=== PATIENT | male | born 1950 | race Caucasian/White ===

== ENCOUNTER 2016-07-15 23:58 | Inpatient (IN) | payer MEDICARE, OTHER ==
--- OUTSIDE RECORDS SUMMARY | 2016-07-16 00:10 | XMS REPORT | Continuity of Care Document ---
:1950 Author Organization [facility] ([facility]) Address [address] [place] [address] Phone [phone] Care Team Providers Name Role Phone Haley Han Primary Care Provider [phone] Source Comments This disclosure is being made pursuant to the Care Everywhere program, applicable federal and state laws, and may not contain all informaitonavailable regarding this patient.[facility] ([facility]) Active Allergies and Adverse Reactions No Known Allergies Current Medications Prescription Sig. Disp. Refills Start Date End Date Status multivitamin tablet Take 1 Tab by mouth Active daily. aspirin 81 mg EC tablet Take 81 mg by mouth Active daily. allopurinol 100 mg Take 100 mg by mouth Active tablet daily. GLUC HICKS/CHONDRO HICKS Take 1 Tab by mouth Active A/VIT C/MN (GLUCOSAMINE daily. 1500 COMPLEX PO) lisinopril 5 mg tablet Take 5 mg by mouth Active daily. omeprazole (PRILOSEC Take 20 mg by mouth Active OTC) 20 mg EC tablet daily. pravastatin 40 mg Take 40 mg by mouth Active tablet every evening. traZODone 150 mg tablet Take 150 mg by mouth Active at bedtime. triamcinolone 0.1 % apply topically 2 Active ointment times daily as needed. Apply a thin layer to affected area. aquaphor ointment apply topically as Active needed. HYDROcodone-acetaminoph Take 1 Tab by mouth Active en 5-325 mg per tablet every 4 hours as needed. citalopram 40 mg tablet Take 40 mg by mouth Active daily. CALCIUM Take 1 Tab by mouth Active CARBONATE/VITAMIN D3 daily. (CALCIUM + D PO) erythromycin 0.5 % 1 application 3 3.5 g 3 09/07/2014 Active ophthalmic ointment times daily. 1/2 inch to the incision; Use for 5-7 days Indications: post-operative erythromycin 0.5 % 3 times daily. 3.5 g 3 09/08/2014 Active ophthalmic ointment Indications: post op HYDROcodone-acetaminoph Take 1 Tab by mouth 25 Tab 0 09/10/2014 Active en 5-325 mg per tablet every 4 hours as needed. Indications: PAIN erythromycin 0.5 % 3 times daily. 3.5 g 3 09/10/2014 Active ophthalmic ointment Indications: post op Active Problems Problem Noted Date HTN (hypertension) 09/07/2014 Gout 09/07/2014 GERD (gastroesophageal reflux disease) 09/07/2014 Hyperlipidemia 09/07/2014 BMI 34.0-34.9,adult 09/07/2014 Social History Tobacco Use Types Packs/Day Years Used Date Former Smoker Cigarettes, Pipe, Cigars 0.25 11 Quit: 06/07/1974 Smokeless Tobacco: Never Used Alcohol Use Drinks/Week oz/Week Comments No Last Filed Vital Signs Vital Sign Reading Time Taken Blood Pressure 152/79 09/10/2014 4:30 PM CDT Pulse 80 09/10/2014 4:30 PM CDT Temperature 36.6 C (97.9 F) 09/07/2014 3:37 PM CDT Respiratory Rate 16 09/10/2014 4:30 PM CDT Height 1.755 m (5' 9.09") 09/07/2014 3:37 PM CDT Weight 105 kg (231 lb 7.7 oz) 09/07/2014 3:37 PM CDT Body Mass Index 34.09 09/07/2014 3:37 PM CDT Oxygen Saturation 97% 09/10/2014 4:30 PM CDT Plan of Care Health Maintenance Due Date Last Done Comments HCV Screening 1950 Hepatitis B Vaccine (1 of 3 - Primary Series) 1950 Tdap Vaccine 1960 Lipid Disorder Screening 1967 Td Vaccine 1967 Colonoscopy 1999 Prostate Cancer Screening 1999 Zoster Vaccine 2009 Pneumococcal Vaccine (1 of 2 - PCV13) 2014 Influenza Vaccine: Seasonal (#1) 01/06/2016 Results from Last 3 Months Not on file
--- NOTE | 2016-07-16 00:24 | ERNOTE ---
Medical Problem HPI - General Time Seen by Provider: 07/16/16 00:19 Source: RN/MD Exam Limitations: clinical condition - Immun/Allergies/Home Medications Allergies/Adverse Reactions: Allergies No Known Allergies Allergy (Unverified 07/16/16 00:49) Home Medications: HOME MEDICATIONS Aspirin 81 mg PO DAILY 07/16/16 [Last Taken Unknown] Citalopram Hydrobromide [Celexa] 40 mg PO DAILY 07/16/16 [Last Taken Unknown] Doxazosin Mesylate [Cardura] 8 mg PO DAILY 07/16/16 [Last Taken Unknown] Lisinopril [Zestril] 5 mg PO DAILY 07/16/16 [Last Taken Unknown] Meloxicam [Mobic] 7.5 mg PO DAILY 07/16/16 [Last Taken Unknown] Omeprazole [Prilosec] 20 mg PO DAILY 07/16/16 [Last Taken Unknown] Pravastatin Sodium [Pravachol] 40 mg PO HS 07/16/16 [Last Taken Unknown] traZODone HCL [Desyrel] 150 mg PO HS 07/16/16 [Last Taken Unknown] - History of Present History Narrative: Pt was transferred here from [facility] [place] He has been given initial fluid and insulin bolus and transferred here for continued treatment Timing: constant Severity: moderate Review of Systems - Narrative Narrative: ROS unreliable due to clinical condition - Review of Systems Constitutional: Present: recent illness EYE: Present: no symptoms reported ENT: Present: no symptoms reported Skin: Present: no symptoms reported Neurological: Present: other - confusion Endocrine: Present: excessive sweating, flushing, increased thirst, increased urine Hematologic/Lymphatic: Present: no symptoms reported Psych: Present: no symptoms reported - Patient's Past Medical History Patient History - Medical: Diabetes Type 2 Physical Exam - Physical Exam General Appearance: Present: mild distress, anxious, lethargic Ears, Nose, Throat: Present: normal ENT inspection, hearing grossly normal Neck: Present: normal inspection, nontender Respiratory: Present: no respiratory distress, normal breath sounds, lungs clear Cardiovascular/Chest: Present: regular rate, rhythm, no murmur, normal peripheral pulses Back Exam: Present: no vertebral tenderness Extremity Exam: Present: normal inspection, non-tender Neurological Exam: Present: disoriented to place Skin Exam: Present: normal color, warm/dry ED Progress - Results and Orders Patient's Lab Results:: I have reviewed the patient's lab results. Results and Orders: Laboratory Tests 07/16/16 07/16/16 00:43 01:21 Sodium 127 L Potassium 3.1 L Chloride 85 L Carbon Dioxide 11.3 L BUN 67 H Creatinine 2.52 H Est GFR (Non-Af Amer) 27 L Random Glucose 385 H Calcium 8.9 Urine Color Yellow Urine Appearance Clear Urine pH 5.5 Ur Specific [place] 1.025 Urine Protein Negative Urine Glucose (UA) >=1000 H Urine Ketones Large Urine Blood 250 H Urine Nitrate Negative Urine Bilirubin 1 H Urine Ictotest Negative Urine Urobilinogen Normal Ur Leukocyte Esterase Negative Urine RBC 0-5 Urine WBC 0-5 Ur Epithelial Cells 0-5 Ur Squamous Epith Cells None seen Urine Bacteria 1+ H - Vital Signs Patient's Vital Signs:: I have reviewed the patient's vital signs. - Progress/Reassessment Progress:: Improved Departure - Departure Clinical Impression: Diabetic keto-acidosis Qualifiers: Diabetes mellitus type: type 2 Diabetes mellitus complication detail: without coma Qualified Code(s): E13.10 - Other specified diabetes mellitus with ketoacidosis without coma Disposition: [facility] Condition: Fair
[2016-07-16] MEDS ORDERED: LIDOCAINE HCL 10 APPL CARTRIDGE ONE (00:28)
[2016-07-16 01:03] LABS: Anion Gap 33.8 mmol/L (6.8-13.8); BUN/Creatinine Ratio 26.6 (9.0-21.6); Calcium * 8.9 mg/dL (7.9-10.9); Carbon Dioxide 11.3 mmol/L (24-32.6); Estimated Creat Clear 29.4; Potassium 3.1 mmol/L (3.4-4.6)
[2016-07-16 01:36] LABS: Urine Bilirubin 1 mg/dl (NEGATIVE); Urine Blood 250 /ul (NEGATIVE); Urine Ketone Large mg/dL (NEGATIVE); Urine Nitrite Negative (NEGATIVE); Urine Protein Negative (NEGATIVE); Urine Specific Gravity 1.025 SP.GR. (1.005-1.030); Urine Urobilinogen Normal (NORMAL); Urine pH 5.5 pH (5.0-7.0)
[2016-07-16] MEDS ORDERED: POTASSIUM CHLORIDE 20 MEQ TABLET.SA PO ONE ×2 (01:36→18:40)
[2016-07-16 01:39] LABS: Urine Appearance Clear; Urine Color Yellow; Urine RBC 0-5 /hpf (0-5); Urine WBC 0-5 /hpf (0-5)
[2016-07-16 01:40] LABS: Urine Bacteria 1+; Urine Squamous Epithelial Cell None Seen /hpf
[2016-07-16] MEDS ORDERED: INSULIN REGULAR HUMAN REC 100 UNITS in NORMAL SALINE 100 ML IV PRN (02:03)
--- NOTE | 2016-07-16 02:03 | HP ---
Chief Complaint - Chief Complaint Date of Service: 07/16/16 Time of Service: 02:03 Chief Complaint: 'Hyperglycemia'. 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 History of Present Illness: Mr. Hoskins is a 66-yr -old WM who was transferred tonight to [facility] ER from [facility] due to lack of capacity to treat him for DKA at their facility. History of illness is unobtainable from the pt due to cognitive impairment and is therefore unreliable. He believes he is at a hospital in [place] and when asked why he presented there, he repeatedly says "diabetes! diabetes!" He is in a disheveled state of hygiene. No family/emergency contacts is reachable by phone. Pt was taken to the [facility] initially by the EMS after being found crawling on the floor at his home. He complained of not being able to eat well for 4 months. He reported that he has not been taking his insulin nor checking blood sugars and when asked why, he stated " because he's a fool." During evaluation at [facility], his serum glucose was noted to be 804mg/DL. The ABG showed he was in Metabolic Acidosis with Respiratory Alkalosis. He also had Leukocytosis with WBC of 19,400, left shift and [address] obtained in [place] did not show evidence of intracranial hemorrhagic or Ischemic stroke, but the evaluation was limited due to pt's constant motion. The Chest CT completed there also did not have any concerns for infiltrates or pleural effusion. However, the imaging showed low density lesion on the RT kidney. He received 2 L IVF NS bolus and the insulin drip was initiated while at [facility] and continued till he arrived to our facility. He had a serum glucose of 385mg/DL on the BMP check in ER. Chemistries showed RENETTA with of Cr 2.52. He was also noted to have PVR > 700ml and the UA showed possible UTI. Pt will need to be admitted inpatient for a minimum of 2 midnights or more due to DKA. - Patient's Past Medical History Patient History - Medical: Diabetes Type 2 Patient History - Cardiac/Respiratory: Hypertension Patient History - Cancer: History Unknown Patient History - Surgical Procedures: No surgical history Patient History - Other: None - Family History Father Family History - Medical: History Unknown Mother Family History - Medical: No pertinent hx, History Unknown - Social History Living Situations: home Abuse History: No History of abuse Psych History: Hx of Anxiety, Hx of Depression Alcohol Use: none Drug Use: none - Immunizations Immunizations Up to Date: No Hx Pneumococcal Vaccination: No History of Influenza Vaccine: No Review Of Systems (GEN) - Review of Systems Additional Comments: ROS unobtainable due to to AMS. Immunizations: IMMUNIZATION HX Immunizations Up to Date No History of Influenza Vaccine No Hx Pneumococcal Vaccination No Allergies/Adverse Reactions: Allergies Allergy/AdvReac Type Severity Reaction Status Date / Time No Known Allergies Allergy Unverified 07/16/16 00:49 Home Medications: HOME MEDICATIONS Allopurinol [Zyloprim (Allopurinol)] 100 mg PO BID 07/16/16 [Last Taken Unknown] Aspirin 81 mg PO DAILY 07/16/16 [Last Taken Unknown] Citalopram Hydrobromide [Celexa] 40 mg PO DAILY 07/16/16 [Last Taken Unknown] Doxazosin Mesylate [Cardura] 8 mg PO DAILY 07/16/16 [Last Taken Unknown] Lisinopril [Zestril] 5 mg PO DAILY 07/16/16 [Last Taken Unknown] Meloxicam [Mobic] 7.5 mg PO DAILY 07/16/16 [Last Taken Unknown] Omeprazole [Prilosec] 20 mg PO DAILY 07/16/16 [Last Taken Unknown] Pravastatin Sodium [Pravachol] 40 mg PO HS 07/16/16 [Last Taken Unknown] traZODone HCL [Desyrel] 150 mg PO HS 07/16/16 [Last Taken Unknown] Exam - Exam Vital Signs: Vital Signs - Last Taken Temp 35.3 C L 07/16/16 00:16 Pulse 99 07/16/16 00:35 Resp 23 H 07/16/16 00:35 BP 104/73 07/16/16 00:35 Pulse Ox 96 07/16/16 00:35 Constitutional: Present: Alert, Mild distress, Other - Dishevelled., Elderly, Looks Older than stated age ENT Exam: Present: hard of hearing, dry mucous membranes. Absent: nasal congestion, nasal drainage Eye Exam: bilateral eye: normal inspection, PERRL Neck: Present: full range of motion, supple, normal inspection Back Exam: Present: normal inspection Breasts: Present: Exam deferred Respiratory: Present: no accessory muscle use, No wheezing Cardiovascular/Chest: Present: regular rate, rhythm, no edema, no murmur Abdomen: Present: Normal bowel sounds, soft, nontender /Rectal: Present: Exam deferred - Gallego Catheter., Other Extremity: Present: normal inspection, no pedal edema, no calf tenderness Skin Exam: Present: no cyanosis, cool/dry Lymphatic: Present: no adenopathy Neurologic: Present: alert, disoriented x 3 Appearance: Present: disheveled, impaired insight, impaired recent memory, impaired remote memory Eye contact: Present: uncooperative Thoughts: Present: no apparent hallucination, incoherent Diagnostic Studies: Abnormal Lab Results 07/16/16 07/16/16 Range/Units 00:43 01:21 Sodium 127 L (132-142) mmol/L Potassium 3.1 L (3.4-4.6) mmol/L Chloride 85 L (97-106) mmol/L Carbon Dioxide 11.3 L (24-32.6) mmol/L Anion Gap 33.8 H (6.8-13.8) mmol/L BUN 67 H (6-23) mg/dL Creatinine 2.52 H (0.4-1.4) mg/dL Est GFR (Non-Af Amer) 27 L (60-130) mL/min BUN/Creatinine Ratio 26.6 H (9.0-21.6) Random Glucose 385 H (70-110) mg/dL Urine Glucose (UA) >=1000 H (NEGATIVE) mg/dL Urine Blood 250 H (NEGATIVE) /ul Urine Bilirubin 1 H (NEGATIVE) mg/dl Urine Bacteria 1+ H (NONE) Laboratory Results Sodium 127 mmol/L (132-142) L 07/16/16 00:43 Plasma Sodium 132 mmol/L (130-142) 07/16/16 00:43 Potassium 3.1 mmol/L (3.4-4.6) L 07/16/16 00:43 Chloride 85 mmol/L (97-106) L 07/16/16 00:43 Carbon Dioxide 11.3 mmol/L (24-32.6) L 07/16/16 00:43 Anion Gap 33.8 mmol/L (6.8-13.8) H 07/16/16 00:43 BUN 67 mg/dL (6-23) H 07/16/16 00:43 Creatinine 2.52 mg/dL (0.4-1.4) H 07/16/16 00:43 Est GFR (Non-Af Amer) 27 mL/min (60-130) L 07/16/16 00:43 BUN/Creatinine Ratio 26.6 (9.0-21.6) H 07/16/16 00:43 Random Glucose 385 mg/dL (70-110) H 07/16/16 00:43 Calcium 8.9 mg/dL (7.9-10.9) 07/16/16 00:43 Urine Color Yellow 07/16/16 01:21 Urine Appearance Clear 07/16/16 01:21 Urine pH 5.5 pH (5.0-7.0) 07/16/16 01:21 Ur Specific [place] 1.025 SP.GR. (1.005-1.030) 07/16/16 01:21 Urine Protein Negative mg/dL (NEGATIVE) 07/16/16 01:21 Urine Glucose (UA) >=1000 mg/dL (NEGATIVE) H 07/16/16 01:21 Urine Ketones Large mg/dL (NEGATIVE) 07/16/16 01:21 Urine Blood 250 /ul (NEGATIVE) H 07/16/16 01:21 Urine Nitrate Negative (NEGATIVE) 07/16/16 01:21 Urine Bilirubin 1 mg/dl (NEGATIVE) H 07/16/16 01:21 Urine Ictotest Negative (NEGATIVE) 07/16/16 01:21 Urine Urobilinogen Normal EU/dl (NORMAL) 07/16/16 01:21 Ur Leukocyte Esterase Negative /ul (NEGATIVE) 07/16/16 01:21 Urine RBC 0-5 /hpf (0-5) 07/16/16 01:21 Urine WBC 0-5 /hpf (0-5) 07/16/16 01:21 Ur Epithelial Cells 0-5 /hpf (0-5) 07/16/16 01:21 Ur Squamous Epith Cells None seen /hpf (NONE) 07/16/16 01:21 Urine Bacteria 1+ (NONE) H 07/16/16 01:21 Urine Culture Comments No culture indicated 07/16/16 01:21 Assessment/Plan - Assessment/Plan (1) DKA (diabetic ketoacidoses) Assessment: Pt noted to have initial Serum Glucose of 804G/dL, low ph and low HCO3, Anion Gap of 37mmm/L. However no N/V. Precipitants may have included insulin deficiency and infection- most likely UTI brought forth by urinary retention. Blood & Urine cultures are pending- Will switch to appropriate antibiotics when culture results. Insulin drip continued at a rate of 0.1units/kg/hr - to be titrated. Received 2 L NS. IVF switched to D5NS /20kcl @150ml/hr due to low K of 3.1, Na 129 & Blood sugar 198. Need to maintain K at 4-5mm/L. Monitor BMP q 2 hrs. Will determine future IVF based on the electrolytes. Resolution of DKA will be noted with Anion gap < 12 , blood glucose < 200MG/dL and if pt is able to eat. The medication sheets do not show if he was ever on any insulin and there is no way to confirm if he ever had DM diagnosis due to lack of medical records and pt being unreliable at the time of physical examination. Will check hgA1C this am. . Problem: Acute Qualifiers: Diabetes mellitus type: type 2 (2) RENETTA (acute kidney injury) Assessment: Most Likely Pre- renal and due to DKA- Continue IVF hydration. Problem: Acute (3) UTI (urinary tract infection) Assessment: Will start on IV Rocephin and switch to appropriate antibiotics when culture results. Problem: Acute (4) Urinary retention Assessment: Will attempt to discontinue Gallego catheter and monitor PVR. If having retention , consider consulting urology. Problem: Acute (5) Non compliance w medication regimen Problem: Acute (6) HTN (hypertension) Problem: Chronic
[2016-07-16] MEDS ORDERED: NORMAL SALINE 1,000 ML IV PRN (02:07)
[2016-07-16] MEDS ORDERED: POTASSIUM CHLORIDE 100 ML IV ONE (02:11)
--- OUTSIDE RECORDS SUMMARY | 2016-07-16 02:20 | XMS REPORT | Continuity of Care Document ---
:1950 Author Organization [facility] ([facility]) Address [address] [place] [address] Phone [phone] Care Team Providers Name Role Phone Haley Han Primary Care Provider [phone] Source Comments This disclosure is being made pursuant to the Care Everywhere program, applicable federal and state laws, and may not contain all informaitonavailable regarding this patient.[facility] ([facility]) Active Allergies and Adverse Reactions No [...]
[2016-07-16] MEDS ORDERED: POTASSIUM CHLORIDE 20 MEQ TABLET.SA ONE (02:34)
[2016-07-16] MEDS: HEPARIN SODIUM,PORCINE 5,000 UNITS/ML VIAL SC SCH ×2 (02:51→13:54)
[2016-07-16 02:58] LABS: Anion Gap 30.8 mmol/L (6.8-13.8); BUN/Creatinine Ratio 26.4 (9.0-21.6); Calcium * 8.9 mg/dL (7.9-10.9); Carbon Dioxide 13.3 mmol/L (24-32.6); Estimated Creat Clear 29.6; Potassium 3.1 mmol/L (3.4-4.6)
[2016-07-16] MEDS: POTASSIUM CHLORIDE 20 MEQ in DEXTROSE 5%-NORMAL SALINE 990 ML IV SCH ×2 (04:34→11:18)
[2016-07-16 05:11] LABS: Anion Gap 24.1 mmol/L (6.8-13.8); BUN/Creatinine Ratio 27.5 (9.0-21.6); Calcium * 8.6 mg/dL (7.9-10.9); Estimated Creat Clear 31.4; Potassium 3.1 mmol/L (3.4-4.6)
[2016-07-16 05:17] LABS: Hematocrit 41.2 % (42.0-52.0); Hemoglobin 15.9 gm/dL (13.5-18.0); Mean Cell Volume 83.2 fl (78-100); Mean Corpuscular Hemoglobin 32.1 pg (27-31); Mean Corpuscular Hgb Conc 38.6 g/dl (32-36); Platelet Count 344 K/mm3 (150-450); Red Blood Count 4.95 M/mm3 (4.7-6.0); Red Cell Distribution Width 11.4 % (11.5-14.0); White Blood Count 20.7 K/mm3 (4.0-10.5)
[2016-07-16 05:19] LABS: Total Cells Counted 100
[2016-07-16 05:39] LABS: Band 1 % (0-2.0); Hypersegmented Polys 3+; Lymphocyte 7 % (20-51); Monocyte 29 % (0-9); Neutrophil 63 % (42-75); Platelet Estimate Increased (NORMAL)
[2016-07-16 07:05] LABS: Anion Gap 16.3 mmol/L (6.8-13.8); BUN/Creatinine Ratio 29.5 (9.0-21.6); Calcium * 8.6 mg/dL (7.9-10.9); Carbon Dioxide 23.8 mmol/L (24-32.6); Estimated Creat Clear 34.2; Potassium 3.1 mmol/L (3.4-4.6)
[2016-07-16 07:29] LABS: Hemoglobin A1C 10.6 % (4.00-6.0)
[2016-07-16] MEDS: ONDANSETRON HCL/PF 2 MG/ML VIAL IV PRN ×2 (07:36→13:30)
[2016-07-16] MEDS: PANTOPRAZOLE SODIUM 40 MG TABLET.EC PO SCH (08:19)
[2016-07-16] MEDS: ASPIRIN 81 MG TAB.CHEW PO SCH (08:19)
[2016-07-16] MEDS: DOXAZOSIN MESYLATE 2 MG TABLET PO SCH (08:19)
[2016-07-16] MEDS: CITALOPRAM HYDROBROMIDE 20 MG TABLET PO SCH (08:20)
[2016-07-16] MEDS: ALPRAZolam 1 MG TABLET PO PRN ×2 (08:21→19:57)
[2016-07-16] MEDS: INSULIN GLARGINE,HUM.REC.ANLOG 100 UNITS/ML VIAL SC SCH (08:52)
[2016-07-16] MEDS ORDERED: DILTIAZEM HCL 30 MG TABLET PO SCH (09:00)
[2016-07-16] MEDS ORDERED: MELOXICAM 7.5 MG TABLET PO SCH (09:00)
[2016-07-16] MEDS ORDERED: LISINOPRIL 5 MG TABLET PO SCH (09:00)
[2016-07-16 09:08] LABS: Troponin I 0.071 ng/ml (0.00-0.10)
[2016-07-16] MEDS ORDERED: NORMAL SALINE 1,000 ML IV ONE ×6 (09:32→16:27)
[2016-07-16 09:35] LABS: Anion Gap 20.6 mmol/L (6.8-13.8); BUN/Creatinine Ratio 33.3 (9.0-21.6); Calcium * 8.1 mg/dL (7.9-10.9); Carbon Dioxide 16.9 mmol/L (24-32.6); Estimated Creat Clear 39.9; Potassium 3.5 mmol/L (3.4-4.6)
[2016-07-16] MEDS ORDERED: DILTIAZEM HCL 5 MG/ML VIAL IV ONE ×2 (10:02→10:08)
[2016-07-16] MEDS: INSULIN LISPRO 100 UNITS/ML VIAL SC SCH ×4 (10:18→17:36)
[2016-07-16 11:09] LABS: Anion Gap 23.5 mmol/L (6.8-13.8); BUN/Creatinine Ratio 32.3 (9.0-21.6); Calcium * 7.5 mg/dL (7.9-10.9); Carbon Dioxide 12.8 mmol/L (24-32.6); Estimated Creat Clear 39.3; Potassium 3.3 mmol/L (3.4-4.6)
[2016-07-16] MEDS: NORMAL SALINE 1,000 ML IV PRN ×3 (11:17→21:46)
[2016-07-16] MEDS ORDERED: AMIODARONE HCL 900 MG in DEXTROSE 5 % IN WATER 500 ML IV SCH ×4 (12:45→13:15)
[2016-07-16 13:10] LABS: BUN/Creatinine Ratio 31.6 (9.0-21.6); Calcium * 7.4 mg/dL (7.9-10.9); Carbon Dioxide 16.5 mmol/L (24-32.6); Estimated Creat Clear 38.4; Potassium 3.5 mmol/L (3.4-4.6)
[2016-07-16] MEDS ORDERED: INSULIN LISPRO 100 UNITS/ML VIAL SC ONE (15:11)
[2016-07-16 15:12] LABS: Anion Gap 22.3 mmol/L (6.8-13.8); Calcium * 7.4 mg/dL (7.9-10.9); Carbon Dioxide 13.2 mmol/L (24-32.6); Estimated Creat Clear 40.3; Potassium 3.5 mmol/L (3.4-4.6)
[2016-07-16 16:36] LABS: Anion Gap 19.7 mmol/L (6.8-13.8); Calcium * 7.3 mg/dL (7.9-10.9); Carbon Dioxide 14.5 mmol/L (24-32.6); Estimated Creat Clear 41.7; Potassium 3.2 mmol/L (3.4-4.6)
[2016-07-16 16:43] LABS: Troponin I 0.066 ng/ml (0.00-0.10)
[2016-07-16 19:32] LABS: BUN/Creatinine Ratio 32.9 (9.0-21.6)
[2016-07-16 19:33] LABS: Anion Gap 17.2 mmol/L (6.8-13.8); Calcium * 7.3 mg/dL (7.9-10.9); Carbon Dioxide 16.1 mmol/L (24-32.6); Estimated Creat Clear 43.6; Potassium 3.3 mmol/L (3.4-4.6)
[2016-07-16] MEDS: traZODone HCL 150 MG TABLET PO SCH (20:00)
[2016-07-16] MEDS: ROSUVASTATIN CALCIUM 10 MG TABLET PO SCH (20:00)
[2016-07-16 23:24] LABS: Anion Gap 16.4 mmol/L (6.8-13.8); BUN/Creatinine Ratio 35.2 (9.0-21.6); Calcium * 7.4 mg/dL (7.9-10.9); Carbon Dioxide 16.2 mmol/L (24-32.6); Estimated Creat Clear 51.2; Potassium 3.6 mmol/L (3.4-4.6)
[2016-07-17] MEDS: NORMAL SALINE 1,000 ML IV PRN ×2 (01:48→06:36)
[2016-07-17] MEDS: HEPARIN SODIUM,PORCINE 5,000 UNITS/ML VIAL SC SCH (01:49)
[2016-07-17 03:11] LABS: Anion Gap 16.5 mmol/L (6.8-13.8); BUN/Creatinine Ratio 30.4 (9.0-21.6); Calcium * 7.5 mg/dL (7.9-10.9); Carbon Dioxide 16.2 mmol/L (24-32.6); Estimated Creat Clear 53.8; Potassium 3.7 mmol/L (3.4-4.6)
--- NOTE | 2016-07-17 06:55 | PN ---
Subjective - Date and Time Seen Date: 07/17/16 Time: 06:23 Subjective Narrative: Mr. Hoskins examined this am. Is not any distress but does not awaken fully to verbal stimuli and mumbles a few words. Noted to have productive coughing. Nursing reports occasional restless and incoherent thought process. Objective - Vitals Vitals: Last Vital Signs Temp 36.6 C 07/17/16 02:00 Pulse 97 07/17/16 06:02 Resp 24 H 07/17/16 06:02 BP 111/59 07/17/16 06:02 Pulse Ox 100 07/17/16 06:02 - Abnormal Lab Findings Abnormal Lab Findings: Abnormal Lab Results 07/16/16 07/16/16 07/16/16 Range/Units 06:48 09:15 10:50 Sodium 128 L 125 L 125 L (132-142) mmol/L Plasma Sodium 127 L 128 L 129 L (130-142) mmol/L Potassium 3.1 L 3.3 L (3.4-4.6) mmol/L Chloride 91 L 91 L 92 L (97-106) mmol/L Carbon Dioxide 23.8 L 16.9 L 12.8 L (24-32.6) mmol/L Anion Gap 16.3 H 20.6 H 23.5 H (6.8-13.8) mmol/L BUN 64 H 62 H 61 H (6-23) mg/dL Creatinine 2.17 H 1.86 H 1.89 H (0.4-1.4) mg/dL Est GFR (Non-Af Amer) 32 L 39 L D 38 L (60-130) mL/min BUN/Creatinine Ratio 29.5 H 33.3 H 32.3 H (9.0-21.6) Random Glucose 49 L D 267 H D 331 H (70-110) mg/dL Calcium 7.5 L (7.9-10.9) mg/dL 07/16/16 07/16/16 07/16/16 Range/Units 12:55 14:52 16:11 Sodium 126 L 127 L 129 L (132-142) mmol/L Plasma Sodium (130-142) mmol/L Potassium 3.2 L (3.4-4.6) mmol/L Chloride 93 L 95 L (97-106) mmol/L Carbon Dioxide 16.5 L 13.2 L 14.5 L (24-32.6) mmol/L Anion Gap 20.0 H 22.3 H 19.7 H (6.8-13.8) mmol/L BUN 61 H 57 H 57 H (6-23) mg/dL Creatinine 1.93 H 1.84 H 1.78 H (0.4-1.4) mg/dL Est GFR (Non-Af Amer) 37 L 39 L 41 L (60-130) mL/min BUN/Creatinine Ratio 31.6 H 31.0 H 32.0 H (9.0-21.6) Random Glucose 355 H 369 H 312 H (70-110) mg/dL Calcium 7.4 L 7.4 L 7.3 L (7.9-10.9) mg/dL 07/16/16 07/16/16 07/17/16 Range/Units 19:22 23:09 03:00 Sodium (132-142) mmol/L Plasma Sodium (130-142) mmol/L Potassium 3.3 L (3.4-4.6) mmol/L Chloride (97-106) mmol/L Carbon Dioxide 16.1 L 16.2 L 16.2 L (24-32.6) mmol/L Anion Gap 17.2 H 16.4 H 16.5 H (6.8-13.8) mmol/L BUN 56 H 51 H 42 H (6-23) mg/dL Creatinine 1.70 H 1.45 H (0.4-1.4) mg/dL Est GFR (Non-Af Amer) 43 L 52 L D 55 L (60-130) mL/min BUN/Creatinine Ratio 32.9 H 35.2 H 30.4 H (9.0-21.6) Random Glucose 199 H D 188 H 218 H (70-110) mg/dL Calcium 7.3 L 7.4 L 7.5 L (7.9-10.9) mg/dL - Exam Constitutional: Present: No distress, Somnolent, Looks Older than stated age ENT Exam: Present: normal ENT inspection, muffled/hoarse voice. Absent: nasal congestion, nasal drainage Neck: Present: normal inspection, trachea midline Breasts: Present: Exam deferred Respiratory: Present: crackles - Throughout Cardiovascular/Chest: Present: regular rate, rhythm, no murmur Abdomen: Present: Normal bowel sounds, soft, nontender /Rectal: Present: Exam deferred Extremity: Present: non-tender, normal inspection, no pedal edema Skin Exam: Present: warm/dry, no cyanosis Lymphatic: Present: no adenopathy Neurologic: Present: other - Does not respond to verbal stimuli. Appearance: Present: impaired insight Eye contact: Present: other - No spontanous eye opening. Thoughts: Present: tactile hallucinations Assessment/Plan - Problems/Diagnosis (1) DKA (diabetic ketoacidoses) Problem: Acute Qualifiers: Diabetes mellitus type: type 2 Narrative: Received aggressive IVF hydration and electrolyte repletion. Is closing in on Anion Gap- 37 on DOA & this am 16.5. Blood sugars in the 200s range. On Long acting and SSI. Will decrease IVF rate this am to 75ml/hr and check CXR due to signs of fluid overload. (2) RENETTA (acute kidney injury) Problem: Acute Narrative: BUN/CR of: 67/2.52 on admission. pre-renal and due to DKA. Cr 1.38 this am. (3) UTI (urinary tract infection) Problem: Acute Narrative: UA showed possible UTI- Continue Rocephin until Urine culture results. CBC in am. (4) Urinary retention Problem: Acute Narrative: Noted to have PVR of 700 on admission, will d/c when more awake and coherent, check PVR and consult urology if having significant amount. (5) New onset type 2 diabetes mellitus Problem: Acute Narrative: Has never been diagnosed with DM before. Presented to [facility] with a BS of 804. HGA1C was noted to be 10.6. Will incorporate DM teaching when more awake and coherent. (6) Non compliance w medication regimen Problem: Acute (7) Atrial fibrillation with RVR Problem: Acute Narrative: New onset of Afib- required Amiodarone and was able to convert to NSR. Consider Echo and adding thromboembolic therapy. (8) HTN (hypertension) Problem: Chronic
[2016-07-17] MEDS: PANTOPRAZOLE SODIUM 40 MG TABLET.EC PO SCH ×2 (07:06→07:14)
[2016-07-17 07:07] LABS: Hematocrit 30.6 % (42.0-52.0); Hemoglobin 11.2 gm/dL (13.5-18.0); Mean Cell Volume 87.4 fl (78-100); Mean Corpuscular Hgb Conc 36.6 g/dl (32-36); Mean Platelet Volume 10.6 fl (6.0-9.5); Neutrophil # 7.1 K/mm3 (1.3-6.0); Neutrophil % 80.8 % (42-75.0); Platelet Count 106 K/mm3 (150-450); Red Cell Distribution Width 11.9 % (11.5-14.0); White Blood Count 8.8 K/mm3 (4.0-10.5)
[2016-07-17] MEDS: INSULIN LISPRO 100 UNITS/ML VIAL SC SCH ×3 (07:09→16:35)
[2016-07-17 07:16] LABS: Anion Gap 17.3 mmol/L (6.8-13.8); BUN/Creatinine Ratio 29.6 (9.0-21.6); Calcium * 7.5 mg/dL (7.9-10.9); Carbon Dioxide 15.4 mmol/L (24-32.6); Estimated Creat Clear 59.4; Potassium 3.7 mmol/L (3.4-4.6)
[2016-07-17] MEDS ORDERED: FUROSEMIDE 10 MG/ML VIAL IV ONE (07:51)
[2016-07-17] MEDS: CITALOPRAM HYDROBROMIDE 20 MG TABLET PO SCH (08:24)
[2016-07-17] MEDS: ASPIRIN 81 MG TAB.CHEW PO SCH (08:24)
[2016-07-17] MEDS: DOXAZOSIN MESYLATE 2 MG TABLET PO SCH (08:24)
[2016-07-17] MEDS: INSULIN GLARGINE,HUM.REC.ANLOG 100 UNITS/ML VIAL SC SCH (08:25)
[2016-07-17] MEDS ORDERED: INSULIN GLARGINE,HUM.REC.ANLOG 100 UNITS/ML VIAL SC ONE (08:45)
[2016-07-17] MEDS ORDERED: INSULIN GLARGINE,HUM.REC.ANLOG 100 UNITS/ML VIAL SC SCH (09:00)
[2016-07-17] MEDS: ALPRAZolam 1 MG TABLET PO PRN (11:18)
[2016-07-17 12:25] LABS: Hematocrit 30.7 % (42.0-52.0); Hemoglobin 11.4 gm/dL (13.5-18.0); Mean Cell Volume 87.5 fl (78-100); Mean Corpuscular Hemoglobin 32.5 pg (27-31); Mean Corpuscular Hgb Conc 37.1 g/dl (32-36); Mean Platelet Volume 11.3 fl (6.0-9.5); Neutrophil # 6.8 K/mm3 (1.3-6.0); Neutrophil % 80.5 % (42-75.0); Platelet Count 103 K/mm3 (150-450); Red Blood Count 3.51 M/mm3 (4.7-6.0); Red Cell Distribution Width 11.9 % (11.5-14.0); White Blood Count 8.5 K/mm3 (4.0-10.5)
[2016-07-17 12:38] LABS: Carbon Dioxide 17.4 mmol/L (24-32.6)
[2016-07-17 12:39] LABS: Albumin * 2.5 gm/dl (3.4-5.0); Anion Gap 16.6 mmol/L (6.8-13.8); Bilirubin, Total 0.8 mg/dL (0.0-1.1); Ca. Corrected For Albumin 8.7 mg/dL (8.4-10.2); Calcium * 7.8 mg/dL (7.9-10.9); Total Protein 5.1 gm/dL (6.2-8.2)
[2016-07-17] MEDS ORDERED: POTASSIUM CHLORIDE 100 ML IV ONE ×4 (12:53→16:00)
[2016-07-17] MEDS ORDERED: AMIODARONE HCL 900 MG in DEXTROSE 5 % IN WATER 500 ML IV SCH ×2 (13:00)
[2016-07-17] MEDS ORDERED: AZITHROMYCIN 500 MG in DEXTROSE 5 % IN WATER 250 ML IV STA ×2 (13:32)
[2016-07-17] MEDS ORDERED: LEVOFLOXACIN/D5W 750 MG in Premix Bag 1 BAG IV SCH (14:05)
[2016-07-17] MEDS ORDERED: NORMAL SALINE 1,000 ML IV PRN (14:39)
[2016-07-17] MEDS ORDERED: ALPRAZolam 0.5 MG TABLET PO PRN (16:45)
[2016-07-17] MEDS: traZODone HCL 150 MG TABLET PO SCH (20:12)
[2016-07-17] MEDS: ROSUVASTATIN CALCIUM 10 MG TABLET PO SCH (20:12)
[2016-07-18] MEDS: CEFEPIME HCL 2 GM in DEXTROSE 5 % IN WATER 100 ML IV SCH ×4 (04:25→16:38)
[2016-07-18 06:25] LABS: Hematocrit 34.2 % (42.0-52.0); Hemoglobin 12.4 gm/dL (13.5-18.0); Mean Cell Volume 88.6 fl (78-100); Mean Corpuscular Hemoglobin 32.1 pg (27-31); Mean Corpuscular Hgb Conc 36.3 g/dl (32-36); Mean Platelet Volume 10.4 fl (6.0-9.5); Neutrophil % 73.8 % (42-75.0); Platelet Count 104 K/mm3 (150-450); Red Blood Count 3.86 M/mm3 (4.7-6.0); Red Cell Distribution Width 12.2 % (11.5-14.0); White Blood Count 8.1 K/mm3 (4.0-10.5)
[2016-07-18] MEDS: PANTOPRAZOLE SODIUM 40 MG TABLET.EC PO SCH (06:28)
[2016-07-18] MEDS: DOXYCYCLINE HYCLATE 100 MG in DEXTROSE 5 % IN WATER 100 ML IV SCH ×4 (06:28→18:42)
[2016-07-18] MEDS: INSULIN LISPRO 100 UNITS/ML VIAL SC SCH ×3 (06:28→16:38)
--- NOTE | 2016-07-18 06:39 | PN ---
Subjective - Date and Time Seen Date: 07/18/16 Time: 06:33 Subjective Narrative: Mr Hoskins is able to engage in a conversation this morning. He asked what time it was, requested for a drink of water and a blanket. Went into Afib with controlled rate at about 2100 last night and converted into NSR at approximately 04.30. No other acute events overnight according to nursing. Objective - Vitals Vitals: Last Vital Signs Temp 36.9 C 07/18/16 02:09 Pulse 89 07/18/16 04:00 Resp 16 07/18/16 04:00 BP 101/57 07/18/16 04:00 Pulse Ox 100 07/18/16 04:00 - Abnormal Lab Findings Abnormal Lab Findings: Abnormal Lab Results 07/17/16 07/17/16 07/17/16 Range/Units 07:01 07:01 11:33 RBC 3.50 L (4.7-6.0) M/mm3 Hgb 11.2 L (13.5-18.0) gm/dL Hct 30.6 L (42.0-52.0) % MCH 32.0 H (27-31) pg MCHC 36.6 H (32-36) g/dl Plt Count 106 L (150-450) K/mm3 MPV 10.6 H (6.0-9.5) fl Neutrophils % 80.8 H (42-75.0) % Lymphocytes % 9.6 L (20-51) % Monocytes % 9.3 H (0.0-9) % Neutrophils # 7.1 H (1.3-6.0) K/mm3 Lymphocytes # 0.9 L (1.5-3.5) k/mm3 pCO2 (35.0-48.0) mmHg HCO3 (21.0-28.0) mmol/L Total CO2 (19.0-24.0) mmol/L Base Excess (-2.0-3.0) mmol/L Potassium (3.4-4.6) mmol/L Carbon Dioxide 15.4 L (24-32.6) mmol/L Anion Gap 17.3 H (6.8-13.8) mmol/L BUN 37 H (6-23) mg/dL BUN/Creatinine Ratio 29.6 H (9.0-21.6) Random Glucose 218 H (70-110) mg/dL Calcium 7.5 L (7.9-10.9) mg/dL Total Protein (6.2-8.2) gm/dL Albumin (3.4-5.0) gm/dl Stool Occult Blood Positive H 07/17/16 07/17/16 07/17/16 Range/Units 12:00 12:00 13:35 RBC 3.51 L (4.7-6.0) M/mm3 Hgb 11.4 L (13.5-18.0) gm/dL Hct 30.7 L (42.0-52.0) % MCH 32.5 H (27-31) pg MCHC 37.1 H (32-36) g/dl Plt Count 103 L (150-450) K/mm3 MPV 11.3 H (6.0-9.5) fl Neutrophils % 80.5 H (42-75.0) % Lymphocytes % 9.3 L (20-51) % Monocytes % 9.6 H (0.0-9) % Neutrophils # 6.8 H (1.3-6.0) K/mm3 Lymphocytes # 0.8 L (1.5-3.5) k/mm3 pCO2 26.9 L (35.0-48.0) mmHg HCO3 18.1 L (21.0-28.0) mmol/L Total CO2 18.9 L (19.0-24.0) mmol/L Base Excess -4.7 L (-2.0-3.0) mmol/L Potassium 3.0 L (3.4-4.6) mmol/L Carbon Dioxide 17.4 L (24-32.6) mmol/L Anion Gap 16.6 H (6.8-13.8) mmol/L BUN 33 H (6-23) mg/dL BUN/Creatinine Ratio 27.0 H (9.0-21.6) Random Glucose 213 H (70-110) mg/dL Calcium 7.8 L (7.9-10.9) mg/dL Total Protein 5.1 L (6.2-8.2) gm/dL Albumin 2.5 L (3.4-5.0) gm/dl Stool Occult Blood 07/18/16 Range/Units 06:19 RBC 3.86 L (4.7-6.0) M/mm3 Hgb 12.4 L (13.5-18.0) gm/dL Hct 34.2 L (42.0-52.0) % MCH 32.1 H (27-31) pg MCHC 36.3 H (32-36) g/dl Plt Count 104 L (150-450) K/mm3 MPV 10.4 H (6.0-9.5) fl Neutrophils % (42-75.0) % Lymphocytes % 15.3 L (20-51) % Monocytes % 9.9 H (0.0-9) % Neutrophils # (1.3-6.0) K/mm3 Lymphocytes # 1.2 L (1.5-3.5) k/mm3 pCO2 (35.0-48.0) mmHg HCO3 (21.0-28.0) mmol/L Total CO2 (19.0-24.0) mmol/L Base Excess (-2.0-3.0) mmol/L Potassium (3.4-4.6) mmol/L Carbon Dioxide (24-32.6) mmol/L Anion Gap (6.8-13.8) mmol/L BUN (6-23) mg/dL BUN/Creatinine Ratio (9.0-21.6) Random Glucose (70-110) mg/dL Calcium (7.9-10.9) mg/dL Total Protein (6.2-8.2) gm/dL Albumin (3.4-5.0) gm/dl Stool Occult Blood - Exam Constitutional: Present: Alert, No distress, Looks Older than stated age ENT Exam: Present: normal ENT inspection, dry mucous membranes. Absent: nasal congestion, nasal drainage Neck: Present: full range of motion, supple, normal inspection Breasts: Present: Exam deferred Respiratory: Present: lungs clear, no accessory muscle use, No wheezing Cardiovascular/Chest: Present: normal peripheral pulses, regular rate, rhythm, no edema, no murmur Abdomen: Present: Normal bowel sounds, soft, nontender /Rectal: Present: Other - Rojas Catheter. Extremity: Present: normal range of motion, non-tender, normal inspection, no calf tenderness Skin Exam: Present: warm/dry, no cyanosis Lymphatic: Present: no adenopathy Neurologic: Present: no motor/sensory deficits, alert, normal mood/affect Appearance: Present: appropriate insight Eye contact: Present: cooperative, good eye contact, normal speech Thoughts: Present: no apparent hallucination Cauti Physician Documentation - Urinary Catheter Management Urethral (Rojas) Date of Insertion: 07/16/16 Time of Insertion: 05:21 Assessment/Plan - Problems/Diagnosis (1) DKA (diabetic ketoacidoses) Problem: Acute Qualifiers: Diabetes mellitus type: type 2 Narrative: Received aggressive IVF hydration and electrolyte repletion. Closed in on Anion Gap- 37 on DOA & on 07/17/16--- 16.5. Blood sugars in the 200s range. On Long acting and SSI. Feels hungry and ready to eat this morning. (2) RENETTA (acute kidney injury) Problem: Acute Narrative: BUN/CR of: 67/2.52 on admission. Pre-renal and due to DKA. Trending down. Cr 1.38----> 1.10 this am. (3) UTI (urinary tract infection) Problem: Acute Narrative: Possible UTI. Check cultures. On Antibiotics. (4) Urinary retention Problem: Acute Narrative: Noted to have PVR of 700 on admission, will d/c rojas today as he is more when awake and alert. check PVR and consult urology if having significant amount. (5) New onset type 2 diabetes mellitus Problem: Acute Narrative: Has never been diagnosed with DM before. Presented to [facility] with a BS of 804. HGA1C was noted to be 10.6. Will incorporate DM teaching when coherent. Consult aeronautical engineering professor for teaching. (6) Non compliance w medication regimen Problem: Acute (7) Generalized weakness Problem: Acute Narrative: Involve PT/OT- Has been bed bound for at least 3 days. (8) Atrial fibrillation with RVR Problem: Acute Narrative: New onset of Afib- required Amiodarone and was able to convert to NSR. Consider Echo and adding thromboembolic therapy. (9) HTN (hypertension) Problem: Chronic
[2016-07-18 06:40] LABS: Anion Gap 14.8 mmol/L (6.8-13.8); BUN/Creatinine Ratio 19.1 (9.0-21.6); Calcium * 8.4 mg/dL (7.9-10.9); Carbon Dioxide 21.5 mmol/L (24-32.6); Estimated Creat Clear 67.5; Potassium 3.3 mmol/L (3.4-4.6)
[2016-07-18] MEDS: ASPIRIN 81 MG TAB.CHEW PO SCH (08:11)
[2016-07-18] MEDS: DOXAZOSIN MESYLATE 2 MG TABLET PO SCH (08:11)
[2016-07-18] MEDS: CITALOPRAM HYDROBROMIDE 20 MG TABLET PO SCH (08:12)
[2016-07-18] MEDS: AMIODARONE HCL 200 MG TABLET PO SCH (08:13)
[2016-07-18] MEDS ORDERED: POTASSIUM CHLORIDE 20 MEQ TABLET.SA PO ONE ×2 (09:00→14:00)
[2016-07-18] MEDS ORDERED: INSULIN GLARGINE,HUM.REC.ANLOG 100 UNITS/ML VIAL SC SCH (09:00)
[2016-07-18] MEDS ORDERED: ACETAMINOPHEN 325 MG TABLET PO PRN (11:15)
[2016-07-18] MEDS ORDERED: AZITHROMYCIN 500 MG in DEXTROSE 5 % IN WATER 250 ML IV SCH ×2 (13:33)
[2016-07-18] MEDS: traZODone HCL 150 MG TABLET PO SCH (20:37)
[2016-07-18] MEDS: ROSUVASTATIN CALCIUM 10 MG TABLET PO SCH (20:37)
[2016-07-19] MEDS: CEFEPIME HCL 2 GM in DEXTROSE 5 % IN WATER 100 ML IV SCH ×4 (04:38→16:13)
[2016-07-19] MEDS: INSULIN LISPRO 100 UNITS/ML VIAL SC SCH ×4 (06:23→21:19)
[2016-07-19] MEDS: PANTOPRAZOLE SODIUM 40 MG TABLET.EC PO SCH (06:24)
[2016-07-19] MEDS: DOXYCYCLINE HYCLATE 100 MG in DEXTROSE 5 % IN WATER 100 ML IV SCH ×4 (06:24→18:36)
[2016-07-19] MEDS: DOXAZOSIN MESYLATE 2 MG TABLET PO SCH (08:39)
[2016-07-19] MEDS: ASPIRIN 81 MG TAB.CHEW PO SCH (08:39)
[2016-07-19] MEDS: AMIODARONE HCL 200 MG TABLET PO SCH (08:40)
[2016-07-19] MEDS: CITALOPRAM HYDROBROMIDE 20 MG TABLET PO SCH (08:40)
[2016-07-19] MEDS: INSULIN GLARGINE,HUM.REC.ANLOG 100 UNITS/ML VIAL SC SCH (08:40)
[2016-07-19 10:19] LABS: Hematocrit 32.5 % (42.0-52.0); Hemoglobin 11.3 gm/dL (13.5-18.0); Mean Corpuscular Hemoglobin 31.7 pg (27-31); Mean Corpuscular Hgb Conc 34.8 g/dl (32-36); Mean Platelet Volume 11.6 fl (6.0-9.5); Neutrophil # 5.9 K/mm3 (1.3-6.0); Neutrophil % 72.5 % (42-75.0); Platelet Count 107 K/mm3 (150-450); Red Blood Count 3.57 M/mm3 (4.7-6.0); Red Cell Distribution Width 11.9 % (11.5-14.0); White Blood Count 8.2 K/mm3 (4.0-10.5)
[2016-07-19 10:33] LABS: Albumin * 2.3 gm/dl (3.4-5.0); Anion Gap 14.7 mmol/L (6.8-13.8); BUN/Creatinine Ratio 12.3 (9.0-21.6); Bilirubin, Total 0.8 mg/dL (0.0-1.1); Ca. Corrected For Albumin 9.3 mg/dL (8.4-10.2); Calcium * 8.3 mg/dL (7.9-10.9); Potassium 3.7 mmol/L (3.4-4.6); Total Protein 5.4 gm/dL (6.2-8.2)
--- NOTE | 2016-07-19 14:48 | PN ---
Subjective - Date and Time Seen Date: 07/19/16 Time: 14:42 Subjective Narrative: Patient is awake, alert, and very talkative today. Reports some heart burn, weakness, and loose stools. Objective - Vitals Vitals: Last Vital Signs Temp 37 C 07/19/16 14:13 Pulse 88 07/19/16 14:13 Resp 15 07/19/16 14:13 BP 126/76 07/19/16 14:13 Pulse Ox 99 07/19/16 14:13 - Abnormal Lab Findings Abnormal Lab Findings: Abnormal Lab Results 07/19/16 07/19/16 Range/Units 10:03 10:03 RBC 3.57 L (4.7-6.0) M/mm3 Hgb 11.3 L (13.5-18.0) gm/dL Hct 32.5 L (42.0-52.0) % MCH 31.7 H (27-31) pg Plt Count 107 L (150-450) K/mm3 MPV 11.6 H (6.0-9.5) fl Immature Gran % (Auto) 1.20 H (0.001-0.429) % Immature Gran # (Auto) 0.10 H (0.000-0.0310) K/mm3 Lymphocytes % 14.9 L (20-51) % Monocytes % 10.3 H (0.0-9) % Lymphocytes # 1.2 L (1.5-3.5) k/mm3 Carbon Dioxide 21.0 L (24-32.6) mmol/L Anion Gap 14.7 H (6.8-13.8) mmol/L Random Glucose 368 H D (70-110) mg/dL Total Protein 5.4 L (6.2-8.2) gm/dL Albumin 2.3 L (3.4-5.0) gm/dl - Exam Constitutional: Present: Alert, Oriented x3, Cooperative ENT Exam: Present: hearing grossly normal Respiratory: Present: lungs clear, normal breath sounds Cardiovascular/Chest: Present: regular rate, rhythm, no murmur Abdomen: Present: Normal bowel sounds, soft, nontender, nondistended Skin Exam: Present: normal color, warm/dry, no cyanosis Cauti Physician Documentation - Urinary Catheter Management Urethral (Gallego) Date of Insertion: 07/16/16 Time of Insertion: 05:21 Date of Removal: 07/18/16 Time of Removal: 07:00 Assessment/Plan - Problems/Diagnosis (1) Pneumonia Problem: Acute Qualifiers: Pneumonia type: due to unspecified organism Laterality: right Lung location: lower lobe of lung Qualified Code(s): J18.1 - Lobar pneumonia, unspecified organism Narrative: Continue Cefepime and doxy for broad coverage, patient has improved significantly with these antibiotics. WBC normalized. Complete 7 days. (2) DKA (diabetic ketoacidoses) Problem: Resolved Qualifiers: Diabetes mellitus type: type 2 (3) RENETTA (acute kidney injury) Problem: Resolved (4) Atrial fibrillation with RVR Problem: Resolved (5) Generalized weakness Problem: Acute Narrative: Patient very weak following acute illness. Will need PT/OT. Will evaluate for skilled candidate.
[2016-07-19] MEDS: LACTOBACILLUS ACIDOPHILUS 100 CAP BTL PO SCH ×2 (16:12→20:27)
[2016-07-19] MEDS: traZODone HCL 150 MG TABLET PO SCH (20:27)
[2016-07-19] MEDS: ROSUVASTATIN CALCIUM 10 MG TABLET PO SCH (20:27)
[2016-07-19] MEDS ORDERED: CALCIUM CARBONATE 500 MG TAB.CHEW PO PRN (20:38)
[2016-07-19] MEDS ORDERED: COD LIVER OIL/ZINC OXIDE 113 APPL TUBE TP PRN (21:34)
[2016-07-20] MEDS: CEFEPIME HCL 2 GM in DEXTROSE 5 % IN WATER 100 ML IV SCH ×4 (05:30→17:02)
[2016-07-20] MEDS: DOXYCYCLINE HYCLATE 100 MG in DEXTROSE 5 % IN WATER 100 ML IV SCH ×4 (07:20→18:43)
[2016-07-20] MEDS: PANTOPRAZOLE SODIUM 40 MG TABLET.EC PO SCH (07:20)
[2016-07-20] MEDS: INSULIN LISPRO 100 UNITS/ML VIAL SC SCH ×4 (07:21→21:52)
--- NOTE | 2016-07-20 07:21 | PN ---
Subjective - Date and Time Seen Date: 07/20/16 Time: 07:09 Subjective Narrative: Mr. Hoskins is awake, alert and in no distress this am. He is very talkative and is glad that he feels better. No acute events overnight. Objective - Vitals Vitals: Last Vital Signs Temp 36.7 C 07/20/16 06:51 Pulse 76 07/20/16 06:51 Resp 18 07/20/16 06:51 BP 140/73 07/20/16 06:51 Pulse Ox 99 07/20/16 06:51 - Abnormal Lab Findings Abnormal Lab Findings: Abnormal Lab Results 07/19/16 07/19/16 Range/Units 10:03 10:03 RBC 3.57 L (4.7-6.0) M/mm3 Hgb 11.3 L (13.5-18.0) gm/dL Hct 32.5 L (42.0-52.0) % MCH 31.7 H (27-31) pg Plt Count 107 L (150-450) K/mm3 MPV 11.6 H (6.0-9.5) fl Immature Gran % (Auto) 1.20 H (0.001-0.429) % Immature Gran # (Auto) 0.10 H (0.000-0.0310) K/mm3 Lymphocytes % 14.9 L (20-51) % Monocytes % 10.3 H (0.0-9) % Lymphocytes # 1.2 L (1.5-3.5) k/mm3 Carbon Dioxide 21.0 L (24-32.6) mmol/L Anion Gap 14.7 H (6.8-13.8) mmol/L Random Glucose 368 H D (70-110) mg/dL Total Protein 5.4 L (6.2-8.2) gm/dL Albumin 2.3 L (3.4-5.0) gm/dl - Exam Constitutional: Present: Alert, Oriented x3, No distress ENT Exam: Present: normal ENT inspection, hearing grossly normal. Absent: nasal congestion, nasal drainage Neck: Present: non-tender, full range of motion, supple Breasts: Present: Exam deferred Respiratory: Present: lungs clear, no accessory muscle use, No wheezing Cardiovascular/Chest: Present: normal peripheral pulses, regular rate, rhythm, no murmur Abdomen: Present: Normal bowel sounds, soft, nontender /Rectal: Present: Exam deferred Extremity: Present: normal range of motion, non-tender, normal inspection Skin Exam: Present: warm/dry, no cyanosis Lymphatic: Present: no adenopathy Neurologic: Present: no motor/sensory deficits, alert, oriented x 3 Appearance: Present: appropriate appearance, appropriate insight Eye contact: Present: cooperative, good eye contact, normal speech Thoughts: Present: normal thought pattern, no apparent hallucination Cauti Physician Documentation - Urinary Catheter Management Urethral (Gallego) Urethral Indwelling: No Date of Insertion: 07/16/16 Time of Insertion: 05:21 Date of Removal: 07/18/16 Time of Removal: 07:00 Assessment/Plan - Problems/Diagnosis (1) DKA (diabetic ketoacidoses) Problem: Resolved Qualifiers: Diabetes mellitus type: type 2 Narrative: Presented with a BS of 804, was on insulin drip, DKA resolved, On long acting & SSI. (2) RENETTA (acute kidney injury) Problem: Resolved Narrative: Improved follwoing IVF hydration. (3) Urinary retention Problem: Acute Narrative: Had Gallego due to high PVR. Gallego discontinued, is voiding normally now. (4) Pneumonia Problem: Acute Narrative: Started on Cefepime and Doxycycline. WBC improving. (5) New onset type 2 diabetes mellitus Problem: Acute Narrative: Involve Whipped Topping Finisher for DM teaching. Hopefully will be seen today. He has a clear mentation/coherent now. (6) Generalized weakness Problem: Acute Narrative: Needs PT/OT. Encourage ambulation. (7) Atrial fibrillation with RVR Problem: Resolved Narrative: Noted to have new onset- Started on Amiodarone 200 daily. May need an Echo once discharged. (8) HTN (hypertension) Problem: Chronic (9) Non compliance w medication regimen Problem: Acute
[2016-07-20] MEDS ORDERED: NITROGLYCERIN 0.4 MG/TAB BTL SL ONE (08:19)
[2016-07-20] MEDS: NITROGLYCERIN 0.4 MG/TAB BTL SL PRN ×3 (08:20→08:30)
[2016-07-20] MEDS ORDERED: MORPHINE SULFATE 4 MG/ML SYRG ONE (08:20)
[2016-07-20] MEDS ORDERED: MORPHINE SULFATE 4 MG/ML SYRG IV ONE (08:22)
[2016-07-20] MEDS ORDERED: ASPIRIN 81 MG TAB.CHEW PO ONE (08:23)
[2016-07-20 08:35] LABS: Hematocrit 34.6 % (42.0-52.0); Hemoglobin 12.3 gm/dL (13.5-18.0); Mean Cell Volume 89.6 fl (78-100); Mean Corpuscular Hemoglobin 31.9 pg (27-31); Mean Corpuscular Hgb Conc 35.5 g/dl (32-36); Neutrophil # 5.2 K/mm3 (1.3-6.0); Neutrophil % 58.4 % (42-75.0); Platelet Count 149 K/mm3 (150-450); Red Blood Count 3.86 M/mm3 (4.7-6.0); Red Cell Distribution Width 11.8 % (11.5-14.0); White Blood Count 8.9 K/mm3 (4.0-10.5)
[2016-07-20 08:52] LABS: Albumin * 2.6 gm/dl (3.4-5.0); Anion Gap 14.2 mmol/L (6.8-13.8); BUN/Creatinine Ratio 9.8 (9.0-21.6); Bilirubin, Total 0.8 mg/dL (0.0-1.1); Ca. Corrected For Albumin 9.6 mg/dL (8.4-10.2); Calcium * 8.8 mg/dL (7.9-10.9); Carbon Dioxide 23.3 mmol/L (24-32.6); Potassium 3.5 mmol/L (3.4-4.6); Troponin I 0.027 ng/ml (0.00-0.10)
[2016-07-20] MEDS: ASPIRIN 81 MG TAB.CHEW PO SCH (09:09)
[2016-07-20] MEDS: DOXAZOSIN MESYLATE 2 MG TABLET PO SCH (09:15)
[2016-07-20] MEDS: CITALOPRAM HYDROBROMIDE 20 MG TABLET PO SCH (09:15)
[2016-07-20] MEDS: LACTOBACILLUS ACIDOPHILUS 100 CAP BTL PO SCH ×2 (09:16→21:37)
[2016-07-20] MEDS: AMIODARONE HCL 200 MG TABLET PO SCH (09:16)
[2016-07-20] MEDS: INSULIN GLARGINE,HUM.REC.ANLOG 100 UNITS/ML VIAL SC SCH (09:16)
[2016-07-20] MEDS: traZODone HCL 150 MG TABLET PO SCH (21:38)
[2016-07-20] MEDS: ROSUVASTATIN CALCIUM 10 MG TABLET PO SCH (21:43)
[2016-07-21] MEDS: CEFEPIME HCL 2 GM in DEXTROSE 5 % IN WATER 100 ML IV SCH ×2 (04:50)
[2016-07-21 05:36] LABS: Mean Cell Volume 90.8 fl (78-100); Red Cell Distribution Width 11.8 % (11.5-14.0)
[2016-07-21 05:58] LABS: Anion Gap 10.3 mmol/L (6.8-13.8); BUN/Creatinine Ratio 10.2 (9.0-21.6); Calcium * 8.9 mg/dL (7.9-10.9); Carbon Dioxide 26.4 mmol/L (24-32.6); Estimated Creat Clear 68.7; Potassium 3.7 mmol/L (3.4-4.6)
[2016-07-21 06:04] LABS: Hematocrit 33.6 % (42.0-52.0); Hemoglobin 11.9 gm/dL (13.5-18.0); Mean Corpuscular Hemoglobin 32.2 pg (27-31); Mean Corpuscular Hgb Conc 35.4 g/dl (32-36); Mean Platelet Volume 11.4 fl (6.0-9.5); Neutrophil # 4.6 K/mm3 (1.3-6.0); Neutrophil % 53.1 % (42-75.0); Platelet Count 153 K/mm3 (150-450); White Blood Count 8.7 K/mm3 (4.0-10.5)
[2016-07-21] MEDS: PANTOPRAZOLE SODIUM 40 MG TABLET.EC PO SCH (06:28)
[2016-07-21] MEDS: DOXYCYCLINE HYCLATE 100 MG in DEXTROSE 5 % IN WATER 100 ML IV SCH ×2 (06:30)
[2016-07-21] MEDS: INSULIN LISPRO 100 UNITS/ML VIAL SC SCH ×2 (06:34→11:33)
[2016-07-21] MEDS: LACTOBACILLUS ACIDOPHILUS 100 CAP BTL PO SCH (09:34)
[2016-07-21] MEDS: CITALOPRAM HYDROBROMIDE 20 MG TABLET PO SCH (09:35)
[2016-07-21] MEDS: ASPIRIN 81 MG TAB.CHEW PO SCH (09:35)
[2016-07-21] MEDS: DOXAZOSIN MESYLATE 2 MG TABLET PO SCH (09:35)
[2016-07-21] MEDS: AMIODARONE HCL 200 MG TABLET PO SCH (09:35)
[2016-07-21] MEDS: INSULIN GLARGINE,HUM.REC.ANLOG 100 UNITS/ML VIAL SC SCH (09:38)
[2016-07-21 10:59] VITALS: BP 132/87
--- NOTE | 2016-07-21 11:43 | DS ---
(1) Severe sepsis with septic shock Diagnosis(s): Yandel Hoskins is a 66 yo male that was admitted with DKA and concern for severe sepsis with septic shock. Chest xray performed showed right basilar pneumonia. Ultimately patient was treated with cefepime and doxycycline for broad coverage as he was severely ill with suspicion for septic shock due to tachycardia, tachypnea, hypothermia, and leukocytosis with altered mental status and hypotension and an infectious source of pneumonia on chest xray. He was treated with aggressive IVFs, broadspectrum antibiotics, and breathing treatments. He improved. To complete a full two weeks of antibiotics will continue on levaquin 750mg daily x 7 additional days. Problem: Acute (2) Pneumonia Diagnosis(s): Yandel Hoskins is a 66 yo male that was admitted with DKA and concern for sepsis. Chest xray performed showed right basilar pneumonia. Ultimately patient was treated with cefepime and doxycycline for broad coverage as he was severely ill with suspicion for septic shock due to tachycardia, tachypnea, hypothermia, and leukocytosis with altered mental status and hypotension and an infectious source of pneumonia on chest xray. He was treated with aggressive IVFs, broadspectrum antibiotics, and breathing treatments. He improved. Problem: Resolved Qualifiers: Pneumonia type: due to unspecified organism Laterality: right Lung location: lower lobe of lung Qualified Code(s): J18.1 - Lobar pneumonia, unspecified organism (3) DKA (diabetic ketoacidoses) Diagnosis(s): Yandel Hoskins is a 66 yo male that was admitted with DKA precipitated by severe sepsis with shock from pneumonia and uncontrolled baseline diabetes. He was treated with aggressive fluids and IV insulin drip. Over time glucose was controlled, electrolytes were controlled, and he was switched to subcutanous insulin which he was discharged on. Diabetic ketoacidosis was resolved during hospital course. Problem: Resolved Qualifiers: Diabetes mellitus type: type 2 (4) RENETTA (acute kidney injury) Diagnosis(s): Acute renal failure due to Severe sepsis with shock and DKA. Treated with IVFs and resolved. Problem: Resolved (5) Atrial fibrillation with RVR Diagnosis(s): Developed atrial fibrillation with RVR due to the stress of DKA and severe sepsis with shock. Resolved with IVF and amiodarone. Problem: Resolved (6) Generalized weakness Diagnosis(s): Developed generalized weakness due to acute illness, he worked on ambulation and was able to ambulate unassisted prior to being discharge. Problem: Acute Procedures Performed: none Discharge Disposition: Home self care Disposition: Home self-care Condition: Good Discharge Activity: Activity as tolerated Discharge Diet: Consistent carbs Referrals: Henny Mack DO [Associate] - One Week () Lukas Flynn MD [Associate] - (F/U Regarding atrial fibrillation) Problem Oriented Discharge Instructions to Patient/Family: Diabetic Ketoacidosis, Atrial Fibrillation, [id number], Community-Acquired Pneumonia, Adult, [id number] Additional Patient Instructions (free text): Follow up with Dr. Mack 07/28 at 1:00 to get paperwork done and appt. at 1:15 in [place]. Follow up with Dr. Flynn 09/02 at 11:00 in [facility]. Check blood sugar twice per day. Prescriptions (Any new or edited meds): Amiodarone HCl [Cordarone] 200 mg PO DAILY #30 tablet Insulin Glargine,Hum.rec.anlog [Lantus] 40 units SC HS #2 vial Lactobacillus Acidophilus [Bacid] 1 cap PO BID #60 btl Levofloxacin [Levaquin] 750 mg PO DAILY #7 tablet Pantoprazole Sodium [Protonix] 40 mg PO DAILY #30 tablet. Sucralfate [Carafate] 1 g PO AC #90 tablet metFORMIN HCL [Glucophage] 1,000 mg PO BIDWM #60 tablet Complete Home Medications List: Complete Home Medication List: Allopurinol [Zyloprim] 100 mg PO BID 07/16/16 Aspirin 81 mg PO DAILY 07/16/16 Citalopram Hydrobromide [Celexa] 40 mg PO DAILY 07/16/16 Doxazosin Mesylate [Cardura] 8 mg PO DAILY 07/16/16 Lisinopril [Zestril] 5 mg PO DAILY 07/16/16 Meloxicam [Mobic] 7.5 mg PO DAILY 07/16/16 Omeprazole [Prilosec] 20 mg PO DAILY PRN 07/16/16 Pravastatin Sodium [Pravachol] 40 mg PO HS 07/16/16 traZODone HCL [Desyrel] 150 mg PO HS 07/16/16 Amiodarone HCl [Cordarone] 200 mg PO DAILY #30 tablet 07/21/16 Insulin Glargine,Hum.rec.anlog [Lantus] 40 units SC HS #2 vial 07/21/16 Lactobacillus Acidophilus [Bacid] 1 cap PO BID #60 btl 07/21/16 Levofloxacin [Levaquin] 750 mg PO DAILY #7 tablet 07/21/16 Pantoprazole Sodium [Protonix] 40 mg PO DAILY #30 tablet. 07/21/16 Sucralfate [Carafate] 1 g PO AC #90 tablet 07/21/16 metFORMIN HCL [Glucophage] 1,000 mg PO BIDWM #60 tablet 07/21/16
[2016-07-21] MEDS ORDERED: FLU VACC QS2016-17 36MOS UP/PF 60 MCG/0.5 ML DISP.SYRIN IM ONE (15:00)
[2016-07-21] MEDS ORDERED: PANTOPRAZOLE SODIUM 40 MG TABLET.EC PO SCH (21:00)
== END 2016-07-21 15:05 | disposition home or self-care (01) | DRG 871 ==
LOC: ER 23:58 → MS 07-16 02:16 → SCU 07-16 06:13 → MS 07-19 08:55
PROVIDERS: ADMIT Nurse Practitioner; ATTEND Family Medicine
PROC: 4A033R1 Measurement of Arterial Saturation, Peripheral, Percutaneous Approach (ICD-10-PCS; principal; 2016-07-16)
DX: A41.9 Sepsis, unspecified organism (principal); E13.10 Other specified diabetes mellitus with ketoacidosis without coma; J18.9 Pneumonia, unspecified organism; R65.21 Severe sepsis with septic shock; N17.9 Acute kidney failure, unspecified; N39.0 Urinary tract infection, site not specified; I48.91 Unspecified atrial fibrillation; Z91.14 Patient's other noncompliance with medication regimen; I10 Essential (primary) hypertension; R53.1 Weakness; Z79.82 Long term (current) use of aspirin; Z23 Encounter for immunization
CPT/HCPCS: 36415; 36600; 51702; 51798; 71010; 71275; 80048; 80053; 81001; 82272; 82803; 83036; 84484; 85007; 85025; 85379; 87040; 87086; 87400; 90686; 93005; 96365; 96367; 96372; 99284; G0008